=== PATIENT | female | born 1975 | race Caucasian/White ===

== ENCOUNTER → 2024-12-03 | Outpatient (CLI) | payer OTHER, BC, SELFPAY ==
[2024-12-03 10:13] LABS: Basophils % (Auto) 0 % (0-2.5); Eosinophils # (Auto) 0.1 Thou/mm3 (0.0-0.5); Eosinophils % (Auto) 1 % (0-10); Hematocrit 36.1 % (36.0-46.0); Hemoglobin 11.5 g/dL (12.0-16.0); Immature Granulocytes % (Auto) 0 % (0-0); Immature Granulocytes Auto 0.01 Thou/mm3 (0.00-0.00); Lymphocytes # (Auto) 1.7 Thou/mm3 (1.0-4.8); Lymphocytes % (Auto) 31 % (10-50); Mean Corpuscular HGB Conc 31.9 g/dl (31.0-37.0); Mean Corpuscular Hemoglobin 24.1 pg (25.0-35.0); Mean Corpuscular Volume 76 fL (80-100); Monocytes # (Auto) 0.3 Thou/mm3 (0.0-0.8); Monocytes % (Auto) 5 % (0-12); Neutrophils # (Auto) 3.4 Thou/mm3 (1.8-7.7); Neutrophils % (Auto) 62 % (37-80); Nucleated Red Blood Cell % 0 /100 WBC (0); Platelet Count 245 Thou/mm3 (140-440); RDW Standard Deviation 42.5 fL (36.4-46.3); Red Blood Count 4.77 Miln/mm3 (4.00-5.20); White Blood Count 5.4 Thou/mm3 (3.6-11.0)
[2024-12-03 10:42] LABS: Glucose Estimated Average 111 mg/dL (80-131); Hemoglobin A1C 5.5 % Hgb (4.8-6.0)
[2024-12-03 10:53] LABS: Alanine Aminotransferase 21 U/L (10-49); Albumin, Serum 4.6 gm/dL (3.5-5.0); Albumin/Globulin Ratio 1.9 (1.2-2.2); Alkaline Phosphatase 67 U/L (46-116); Anion Gap 9 (7-16); Aspartate Amino Transferase 15 U/L (0-34); BUN/Creatinine Ratio 15 Ratio (12-20); Bilirubin,Direct < 0.1 mg/dL (0.0-0.3); Bilirubin,Total 0.3 mg/dL (0.3-1.2); Blood Urea Nitrogen 12 mg/dL (9-23); Calcium 9.4 mg/dL (8.3-10.6); Calcium (Corrected) 9.4 mg/dL (8.5-10.1); Carbon Dioxide 25.5 mMol/L (20.0-31.0); Cardiac Risk Estimate 3.9 RATIO (3.7-5.6); Chloride 104 mMol/L (98-107); Cholesterol 157 mg/dL (132-200); Creatinine (Component) 0.8 mg/dL (0.6-1.3); Free T4 (Free Thyroxine) 1.33 ng/dL (0.89-1.76); Globulin 2.4 gm/dL (2.3-3.5); Glucose 94 mg/dL (74-106); HDL Cholesterol 40 mg/dL (40-60); LDL Cholesterol,Calculated 92 mg/dL (0-130); Osmolality,Calculated 275 (275-295); Phosphorous 2.6 mg/dL (2.4-5.1); Potassium 4.4 mMol/L (3.4-5.1); Sodium 138 mMol/L (136-145); Thyroid Stimulating Hormone 0.67 uIU/mL (0.55-4.78); Triglycerides 127 mg/dL (30-150); eGFR > 60 See Note
[2024-12-03 11:15] LABS: Folate 19.92 ng/mL (>5.38); Hepatitis A Antibody IgM Non Reactive (Non React); Hepatitis B Core Antibody IgM Non Reactive (Non React); Hepatitis B Surface Antigen Non Reactive (Non React); Hepatitis C Antibody Non Reactive (Non React); Vitamin B12 416 pg/mL (211-911); Vitamin D 25 Hydroxy Total 35.1 ng/mL (7.3-40.2)
[2024-12-03 11:39] LABS: HIV (1&2) Antibody Rapid Non-Reactive
[2024-12-09 07:22] LABS: T3 Uptake* 25 % (22-35)
== END | disposition home or self-care (01) ==
LOC: COPL 08:36
PROVIDERS: PCP Physician Assistant Medical; Referring Provider Physician Assistant Medical; Visit Provider Physician Assistant Medical
DX: Z00.00 Encounter for general adult medical examination without abnormal findings (principal); E03.9 Hypothyroidism, unspecified; I10 Essential (primary) hypertension
CPT/HCPCS: 36415; 80053; 80061; 80074; 82248; 82306; 82607; 82746; 83036; 84100; 84439; 84443; 84479; 85025; 86703

== ENCOUNTER → 2025-01-29 | Outpatient (CLI) | payer BC, OTHER, SELFPAY ==
[2025-01-29 08:46] LABS: Iron 33 mcg/dL (50-170); Percent Iron Saturation 10 % (20-55); Total Iron Binding Capacity 322 mcg/dL (250-425); Unsaturated Iron Binding 289 (225-295)
== END | disposition home or self-care (01) ==
PROVIDERS: PCP Physician Assistant Medical; Referring Provider Physician Assistant Medical; Visit Provider Physician Assistant Medical
DX: D50.8 Other iron deficiency anemias (principal)
CPT/HCPCS: 36415; 83540; 83550

== ENCOUNTER 2025-05-27 11:15 | Emergency (ER) | payer BC, OTHER, SELFPAY ==
[2025-05-27 11:16] VITALS: BMI 39.8
[2025-05-27 11:26] VITALS: BP 154/109; BP 188/103; PULSE 84; RESP 16; TEMP 36.8; O2SAT 99
--- NOTE | 2025-05-27 11:33 | XR_ITS ---
Examination: PA lateral chest 2 views TECHNIQUE: Upright PA lateral chest 2 views Date and time: May 27, 2025, 1156 hours INDICATIONS: Covid positive one week ago with chest pain shortness of breath. FINDINGS: Normal heart size. No pneumonia or pulmonary edema. The osseous structures are intact IMPRESSION: No active disease.
--- NOTE | 2025-05-27 11:33 | EKG_ITS ---
[facility] Test Date: 2025-05-27 Pat Name: AFUA WARREN Department: Room: - Gender: Female Senior Accounting Associate: : 1975 Requested By: Michael Decker (ELIA) Order Number: [id number] Reading MD: Michael Decker (ECONOMICS DEPARTMENT CHAIR) Measurements Intervals [place] Rate: 79 P: 29 DC: 165 QRS: 8 QRSD: 87 T: 58 QT: 345 QTc: 397 Interpretive Statements SINUS RHYTHM POSSIBLE ANTERIOR MYOCARDIAL INFARCTION , OF INDETERMINATE AGE [30 ms Q WAVE IN V3/V4, OR R < 0.2 mV IN V4] Compared to ECG 09/29/2021 12:34:28 Myocardial infarct finding now present /store/[id number].pdf
[2025-05-27 11:52] LABS: Collection Type, Urine Clean Catch
--- NOTE | 2025-05-27 11:58 | PD.EDURI ---
Upper Respiratory Inf. RME/HPI General Chief Complaint: Flu Like Symptoms Stated Complaint: COVID +, NOT FEELING BETTER Time Seen by Provider: 05/27/25 11:33 Arrival date/time: 05/27/25 11:15 RME / HPI RME / HPI Narrative: 50-year-old female patient was brought in by family for evaluation regarding not feeling well. Patient was diagnosed with COVID-19 last week and since then has been having bodyaches, chest pain, not feeling well, severity moderate. Patient denies any fever. Also complaining of nonproductive cough. Denies any abdominal pain denies any other complaints no medications taken prior to arrival. Related Data Home Medications ?Medication ?Instructions ?Recorded ?Confirmed cholecalciferol (vitamin D3) 50 50 mcg PO QDAY 09/29/21 10/02/21 mcg (2,000 unit) capsule (Vitamin D3) gabapentin 100 mg tablet 100 mg PO QDAY 09/29/21 10/02/21 levothyroxine 125 mcg tablet 125 mcg PO DAILY 09/29/21 10/02/21 (Synthroid) lisinopril 20 mg tablet 20 mg PO QDAY 09/29/21 10/02/21 mirabegron 25 mg tablet,extended 25 mg PO QDAY 09/29/21 09/29/21 release 24 hr (Myrbetriq) omeprazole 40 mg capsule,delayed 40 mg PO QDAY 09/29/21 10/02/21 release venlafaxine 150 mg 150 mg PO QAM 09/29/21 10/02/21 capsule,extended release 24 hr Previous Rx's ?Medication ?Instructions ?Recorded oxycodone-acetaminophen 10 mg-325 1 tab PO TID PRN pain #40 tabs 10/02/21 mg tablet (Percocet) fexofenadine 60 mg-pseudoephedrine 1 tab PO Q12H PRN allergy symptoms 05/27/25 ER 120 mg tablet,ext.release,12 hr #20 tabs (Jovita-D 12 Hour) Allergies Allergy/AdvReac Type Severity Reaction Status Date / Time codeine AdvReac Intermediate NAUSEA Verified 05/27/25 11:21 Review of Systems Review of Systems Narrative Review of Systems: Review of system reviewed and within normal limits except mentioned in HPI ED Exam Narrative Physical exam: VITAL SIGNS: Reviewed. GENERAL APPEARANCE: Alert and interactive, follows commands, no acute distress, HEAD AND FACE: Non-traumatic. ENT: PERRL, pink conjunctivitis, eyelid no trauma, Mucous membrane moist. NECK: Supple, nontender, no nuchal rigidity. CHEST: No tenderness, no crepitus, no paradoxical movement, no retractions. LUNGS: Clear, well ventilated, symmetric, no rales, no wheezing, no ronchi, no stridor, good breath sounds bilaterally. HEART: Regular rate, regular rhythm, no murmur, no gallops. ABDOMEN: Soft, positive bowel sounds, nondistended, no guarding, nontender, no rebound, no masses, RECTAL: Deferred. GENITAL: Deferred. NEUROLOGICAL: Gross motor function intact sensory function intact, Appropriate for age. MUSCULOSKELETAL: low back nontender, full range of motion. EXTREMITIES: Nontender, full range of motion. SKIN: Color pink, dry, no rash, no lacerations, no abrasions, no contusions. LYMPHATICS: Deferred. Course Quality Measures none Orders Category Date Time Status EKG (ED ONLY) *Do not use* NOW Care 05/27/25 11:33 Completed Insert IV NOW Care 05/27/25 11:47 Active EKG (ED Only) Stat Exams 05/27/25 11:33 Draft XR chest 2V Stat Exams 05/27/25 11:33 Completed CBC Stat Lab 05/27/25 11:55 Completed Comprehensive Metabolic Panel Stat Lab 05/27/25 11:55 Completed Strep A Rapid Stat Lab 05/27/25 12:16 Completed Troponin I Stat Lab 05/27/25 11:55 Completed Urinalysis, C/S if Indicated Stat Lab 05/27/25 11:45 Completed Acetaminophen Tab [Tylenol ES Tab] Med 05/27/25 11:57 Discontinued 1,000 mg PO X1 ONE Lisinopril [Prinivil] Med 05/27/25 11:57 Discontinued 20 mg PO X1 ONE Sodium Chloride 0.9% 1000 ml [Ns] 1,000 ml Med 05/27/25 11:57 Discontinued IV 999 mls/hr Vital Signs Vital signs: Vital Signs Temperature 98.3 F 05/27/25 11:26 Pulse Rate 84 05/27/25 11:26 Respiratory Rate 16 05/27/25 11:26 Blood Pressure 188/103 H 05/27/25 11:26 Pulse Oximetry (%) 99 05/27/25 11:26 Oxygen Delivery Method Room Air 05/27/25 11:26 Upper Respiratory Infection MDM Narrative MDM Narrative:: 50-year-old female patient was brought in by family for evaluation regarding not feeling well. Patient was diagnosed with COVID-19 last week and since then has been having bodyaches, chest pain, not feeling well, severity moderate. Patient denies any fever. Also complaining of nonproductive cough. Denies any abdominal pain denies any other complaints no medications taken prior to arrival. EKG shows sinus rhythm, ventricular rate of 79 bpm, ME interval 165 MS, no ST segment elevation or depression noted. I personally reviewed and interpreted the x-ray of this patient. There is no acute abnormalities found, no infiltrates no pneumothorax no hemothorax normal chest x-ray. Review of other structures was without significant abnormal findings also. I additionally reviewed the radiologist report and agree with the interpretation. Laboratory workup all came back unremarkable. Negative for strep urinalysis no UTI. Patient blood pressure was noted to be elevated, patient was given her lisinopril in the emergency room. They added clonidine. Significant improvement of symptoms noted. Patient data External records reviewed:: None Clinical information provided by:: patient Social determinants that could affect healthcare access:: none Patient has the following chronic illnesses:: Hypertension How is presenting disease/condition affected by chronic disease/condition?: uneffected by Evaluation data The following diagnostics were reviewed and interpreted by me:: lab results, radiology exam(s) and EKG tracing(s) Lab and/or radiology exams considered but not ordered:: None Interpretation Summary: See results [facility] Medications / Prescriptions Medications or Prescriptions considered but not ordered:: None Medication administrations:: Medication Administration History Discontinued Medications Acetaminophen (Acetaminophen 500 Mg Tablet) 1,000 mg PO X1 ONE Stop: 05/27/25 11:58 Last Admin: 05/27/25 12:14 Dose: 1,000 mg Documented By: RON Sodium Chloride (Ns) 1,000 mls @ 999 mls/hr IV .Q1H1M ONE Stop: 05/27/25 12:57 Last Infusion: 05/27/25 13:18 Dose: Infused Documented By: Admin: 05/27/25 12:13 Dose: 999 mls/hr Documented By: RON Lisinopril (Lisinopril 20 Mg Tablet) 20 mg PO X1 ONE Stop: 05/27/25 11:58 Last Admin: 05/27/25 12:14 Dose: 20 mg Documented By: DB Lisinopril, IV fluids, Tylenol, and clonidine Consultations Consultation(s) initiated? (list below): No Diagnosis Upper Respiratory Differential Diagnosis: upper respiratory infection and viral infection Most likely diagnosis given after review of the tests above:: None Admission Indicated Admission indicated?: not indicated Admission Request Was there a request for admission?: No Disposition Plan Disposition Plan: Discharge Discharge Attestation Discharge Attestation: The patient and all family members were given an opportunity to ask questions and understood the discharge instructions. Discharge instructions specifically effects, indications for sooner follow up or return to the emergency department, and the expected course of current diagnosis. Patient condition: Stable Discharge Plan Plan Patient Disposition: HOME (Self Care) Discharge Disposition comment: Stable Prescriptions/Referrals Prescriptions/Med Rec: New fexofenadine-pseudoephedrine [Jovita-D 12 Hour] 60-120 mg tablet extended release 12 hr 1 tab PO Q12H PRN (Reason: allergy symptoms) Qty: 20 0RF No Action lisinopril 20 mg Tablet 20 mg PO QDAY venlafaxine 150 mg Capsule,Extended Release 24hr 150 mg PO QAM omeprazole 40 mg Capsule,Delayed Release(Dr/Ec) 40 mg PO QDAY levothyroxine [Synthroid] 125 mcg tablet 125 mcg PO DAILY gabapentin 100 mg Tablet 100 mg PO QDAY cholecalciferol (vitamin D3) [Vitamin D3] 50 mcg (2,000 unit) Capsule 50 mcg PO QDAY Myrbetriq 25 mg Tablet Extended Release 24 Hr 25 mg PO QDAY oxycodone-acetaminophen [Percocet] 10-325 mg tablet 1 tab PO TID MDD 3 PRN (Reason: pain) Qty: 40 0RF Referrals: Isaias Garza PA-C [Primary Care Provider] - In 1 week Problem List Clinical Impression: Upper respiratory infection Patient/Caregiver Discharge Instructions Discharge Activity: activity as tolerated Education Materials: ED URI, Viral, No Abx (Adult) Additional Instructions: Thank you for the opportunity for serving you today. You are stable for discharged . You are advised to: Follow-up with your PCP in 1 to 2 days Return to ED for worsening of symptoms Increase oral fluids Take medication as prescribed Print Language: Hebrew Stand Alone Forms: Marilin Award Info., Patient Portal Info Letter PA/PARTS BACK COUNTER MAN Supervising Physician PA/PARTS BACK COUNTER MAN Supervising Physician: MD Dianne
[2025-05-27 12:00] LABS: Bilirubin,Urine Negative (Negative); Blood,Urine Negative (Negative); Clarity,Urine Clear (Clear/Hazy); Color,Urine Yellow (Lt Yel-Yel); Culture Indicated,Urine Not Indicated; Glucose, Urine Negative (Negative); Ketones,Urine Negative (Negative); Leukocyte Esterase,Urine Positive (Negative); Nitrite,Urine Negative (Negative); PH,Urine 6.0 (5.0-7.0); Protein,Urine Trace (Neg - Trace); RBC,Urine 6 /hpf (0-3); Specific Gravity,Urine 1.031 (1.001-1.035); Squamous Epithelial Cell,Urine 2 /hpf (0-5); Urobilinogen,Urine Negative mg/dL (0.0-1.0); WBC,Urine 3 /hpf (0-5)
[2025-05-27] MEDS: SODIUM CHLORIDE 0.9% 1000 ML 1,000 ML 999 ML IV (12:13)
[2025-05-27 12:14] VITALS: BP 188/103; PULSE 84
[2025-05-27] MEDS: ACETAMINOPHEN 500 MG TABLET 1000 MG PO (12:14)
[2025-05-27 12:23] LABS: Basophils # (Auto) 0.0 Thou/mm3 (0.0-0.2); Basophils % (Auto) 0 % (0-2.5); Eosinophils # (Auto) 0.2 Thou/mm3 (0.0-0.5); Eosinophils % (Auto) 3 % (0-10); Hematocrit 40.0 % (36.0-46.0); Hemoglobin 12.7 g/dL (12.0-16.0); Immature Granulocytes Auto 0.01 Thou/mm3 (0.00-0.00); Lymphocytes # (Auto) 2.0 Thou/mm3 (1.0-4.8); Lymphocytes % (Auto) 28 % (10-50); Mean Corpuscular HGB Conc 31.8 g/dl (31.0-37.0); Mean Corpuscular Hemoglobin 25.0 pg (25.0-35.0); Mean Corpuscular Volume 79 fL (80-100); Monocytes # (Auto) 0.4 Thou/mm3 (0.0-0.8); Monocytes % (Auto) 5 % (0-12); Neutrophils # (Auto) 4.4 Thou/mm3 (1.8-7.7); Neutrophils % (Auto) 63 % (37-80); Nucleated Red Blood Cell # 0.00 Thou/mm3 (0.00-0.00); Nucleated Red Blood Cell % 0 /100 WBC (0); Platelet Count 259 Thou/mm3 (140-440); RDW Standard Deviation 39.8 fL (36.4-46.3); Red Blood Count 5.09 Miln/mm3 (4.00-5.20); White Blood Count 7.0 Thou/mm3 (3.6-11.0)
[2025-05-27 12:46] LABS: Alanine Aminotransferase 50 U/L (10-49); Albumin, Serum 5.0 gm/dL (3.5-5.0); Albumin/Globulin Ratio 2.2 (1.2-2.2); Alkaline Phosphatase 87 U/L (46-116); Anion Gap 9 (7-16); Aspartate Amino Transferase 39 U/L (0-34); BUN/Creatinine Ratio 15 Ratio (12-20); Bilirubin,Total 0.3 mg/dL (0.3-1.2); Blood Urea Nitrogen 12 mg/dL (9-23); Calcium 10.1 mg/dL (8.3-10.6); Calcium (Corrected) 10.1 mg/dL (8.5-10.1); Carbon Dioxide 26.8 mMol/L (20.0-31.0); Chloride 105 mMol/L (98-107); Creatinine (Component) 0.8 mg/dL (0.6-1.3); Estimated Creatinine Clearance 98.1 mL/min (>60); Globulin 2.3 gm/dL (2.3-3.5); Glucose 88 mg/dL (74-106); Osmolality,Calculated 279 (275-295); Potassium 4.1 mMol/L (3.4-5.1); Sodium 141 mMol/L (136-145); Total Protein 7.3 gm/dL (5.7-8.2); Troponin I < 0.020 ng/mL (0.0-0.045); eGFR > 60 See Note
[2025-05-27 12:54] LABS: Strep A Rapid Negative (Negative)
[2025-05-27 14:27] VITALS: BP 173/95; BP 182/118; PULSE 74; RESP 18; TEMP 36.6; O2SAT 99
[2025-05-27 14:35] VITALS: BP 173/95; PULSE 74
[2025-05-27 14:50] VITALS: BP 163/80; PULSE 71; RESP 14; TEMP 36.7; O2SAT 98
== END 2025-05-27 14:58 | disposition home or self-care (01) ==
PROVIDERS: Nurse Practitioner Family; Nurse Practitioner Primary Care; Emergency Provider Family Medicine; PCP Physician Assistant Medical
DX: J06.9 Acute upper respiratory infection, unspecified (principal)
CPT/HCPCS: 36415; 71046; 80053; 81001; 84484; 85025; 87651; 93005; 96360; 99283; J7030; A9270